=== PATIENT | female | born 1955 | race African-American/Black ===

== ENCOUNTER 2017-05-20 18:43 | Emergency (ER) | payer OTHER ==
[~2017-05-20 18:43] MED LIST: ALBU6.7H INH; IPRA17I INH; PRED10 PO; PRED20 PO; RANI150 PO
[2017-05-20 18:45] VITALS: BP 130/85; PULSE 87; RESP 16; TEMP 98; O2SAT 99
[2017-05-20 19:58] VITALS: BP 159/70; PULSE 87; RESP 18; O2SAT 98
[2017-05-20] MEDS ORDERED: MONT10TA2 PO (20:07)
[2017-05-20] MEDS ORDERED: IPRA17I INH (20:07)
[2017-05-20] MEDS ORDERED: CELE200C PO (20:07)
[2017-05-20] MEDS ORDERED: GLUC500T4 PO (20:07)
[2017-05-20] MEDS ORDERED: ALBUAER3 INH (20:07)
[2017-05-20] MEDS ORDERED: multivitamin PO (20:07)
[2017-05-20] MEDS ORDERED: calcium PO (20:07)
[2017-05-20] MEDS ORDERED: predniSONE 20 MG TAB PO ONE (20:15)
[2017-05-20] MEDS ORDERED: KETOROLAC TROMETHAMINE 60 MG/2 ML (IM) VIAL IM ONE (20:15)
[2017-05-20] MEDS ORDERED: MORPHINE SULFATE 8 MG/ML INJ IM ONE (20:15)
--- NOTE | 2017-05-20 21:13 | PD ---
HPI Chief Complaint: Pain: Acute or Chronic Time Seen by Provider: 20:04 Travel History International Travel<30 days: No Contact w/Intl Traveler<30days: No Traveled to known affect area: No History of Present Illness HPI Patient 61-year-old female with a history of degenerative disc disease presents emergency department for evaluation of low back pain radiating down her left leg. Patient states been going on for the past few days and gradually worsening. Denies any saddle anesthesia difficulty urinating fevers her back trauma. States not flared up on her in some time. When trying some Tylenol and ibuprofen at home. Patient states the symptoms are moderate to severe, gradually worsening, pins and needles in quality. PFSH Past Medical History Asthma: Yes Blood Disorders: No Cancer: No Cardiovascular Problems: No Diminished Hearing: No Endocrine: No Glaucoma: Yes (PREVENTIVE MEASURES, FAMILY HISTORY) Genitourinary: No Immune Disorder: No Musculoskeletal: Yes Reproductive: No Respiratory: Yes Tetanus Vaccination: Unknown Menopausal: Yes Tubal Ligation: Yes Past Surgical History Cholecystectomy: Yes Social History Alcohol Use: Yes (WINE DAILY) Tobacco Use: Yes (1 PPD) Substance Use: No Allergies-Medications (Allergen,Severity, Reaction): Coded Allergies: Sulfa (Sulfonamide Antibiotics) (Unverified Allergy, Severe, HIVES, ) Reported Meds & Prescriptions Reported Meds & Active Scripts Active Sweet Briar (Hydrocodone-Acetaminophen) 5-325 mg Tab 1 Tab PO Q6H PRN Prednisone 20 Mg Tab 60 Mg PO DAILY 5 Days Reported [calcium] 1 Tab PO DAILY [multivitamin] 1 Tab PO DAILY Glucosamine-Chondroitin 500-400 Mg Tab 1 Tab PO DAILY Atrovent HFA 12.9 GM Inh (Ipratropium Hassell) 17 Mcg/Actuation Aer 1 Puff INH BID Proair Hfa 8.5 GM Inh (Albuterol Sulfate) 90 Mcg/Act Aer 2 Puff INH Q4-6H PRN 108 mcg/actuation Singulair (Montelukast Sodium) 10 Mg Tab 10 Mg PO HS Celebrex (Celecoxib) 200 Mg Cap 200 Mg PO DAILY Review of Systems Except as stated in HPI: all other systems reviewed are Neg Physical Exam Narrative GENERAL: Well-developed well-nourished, mildly uncomfortable laying on her side in a stretcher. SKIN: Focused skin assessment warm/dry. HEAD: Atraumatic. Normocephalic. EYES: Pupils equal and round. No scleral icterus. No injection or drainage. ENT: No nasal bleeding or discharge. Mucous membranes pink and moist. NECK: Trachea midline. No JVD. CARDIOVASCULAR: Regular rate and rhythm. No murmur appreciated. RESPIRATORY: No accessory muscle use. Clear to auscultation. Breath sounds equal bilaterally. GASTROINTESTINAL: Abdomen soft, non-tender, nondistended. Hepatic and splenic margins not palpable. MUSCULOSKELETAL: No obvious deformities. No clubbing. No cyanosis. No edema. No midline CT or L-spine tenderness, 5 out of 5 strength in all 4 extremities, DTRs 2+ and bilaterally equal at the patella and Achilles. NEUROLOGICAL: Awake and alert. No obvious cranial nerve deficits. Motor grossly within normal limits. Normal speech. PSYCHIATRIC: Appropriate mood and affect; insight and judgment normal. Data Data Last Documented VS Vital Signs Date Time Temp Pulse Resp B/P (MAP) Pulse Ox O2 Delivery O2 Flow Rate FiO2 05/20/17 23:08 83 18 137/68 (91) 96 05/20/17 19:58 Room Air 05/20/17 18:45 98.0 Orders Orders Morphine Inj (Morphine Inj) (05/20/17 20:15) Ketorolac Inj (Toradol Inj) (05/20/17 20:15) Prednisone (Deltasone) (05/20/17 20:15) Ct Lumb Spine W/O Contrast (05/20/17 ) [facility] Medical Decision Making Medical Screen Exam Complete: Yes Emergency Medical Condition: Yes Differential Diagnosis Fracture, strain, sprain, cauda equina is excluded clinically, sciatica. Narrative Course Roomed in the emergency department, given pain medicine, CT scan shows degenerative disease without any acute findings. No indication further workup in the emergency department, ambulated from the emergency department in no distress. Discussed follow-up and return to ED criteria. Diagnosis Primary Impression: Sciatica Qualified Codes: M54.31 - Sciatica, right side Referrals: Cuong Torres MD [facility] Additional Instructions: Follow-up with your regular physician or the [facility]. Follow-up with Dr. Torres to consider injections. Med/Other Pt SpecificInfo: Prescription(s) given Scripts Hydrocodone-Acetaminophen (Sweet Briar) 5-325 mg Tab 1 TAB PO Q6H Y for PAIN, #12 TAB 0 Refills Prov: Jairo Carlin MD 05/20/17 Prednisone (Prednisone) 20 Mg Tab 60 MG PO DAILY for 5 Days, #15 TAB 0 Refills Prov: Jairo Carlin MD 05/20/17 Disposition: 01 DISCHARGE HOME Condition: Stable Jairo Carlin MD May 20, 2017 21:13
--- NOTE | 2017-05-20 22:15 | RADRPT ---
EXAM DATE/TIME: 05/20/2017 21:32 [facility] COMPARISON: No previous studies available for comparison. INDICATIONS : Lower back pain radiating down the left leg. RADIATION DOSE: 35.80 CTDIvol (mGy) MEDICAL HISTORY : None SURGICAL HISTORY : Cholecystectomy. Tubal ligation. ENCOUNTER: Initial ACUITY: 2 days PAIN SCALE: 7/10 LOCATION: Left lower back TECHNIQUE: Volumetric scanning of the lumbar spine was performed. Multiplanar reconstructions in the sagittal, coronal and oblique axial planes were performed. Using automated exposure control and adjustment of the mA and/or kV according to patient size, radiation dose was kept as low as reasonably achievable t o obtain optimal diagnostic quality images. DICOM format image data is available electronically for review and comparison. FINDINGS: VERTEBRAE: Normal vertebral body height. Moderate degenerative changes in the facet joints L3-S1 bilaterally. Vascular calcification nondistended abdominal aorta. ALIGNMENT: No evidence of subluxation. T12-L1: The thecal sac has a normal diameter. No evidence of disc bulge or protrusion. The neural foramina are patent bilaterally. L1-L2: The thecal sac has a normal diameter. No evidence of disc bulge or protrusion. The neural foramina are patent bilaterally. L2-L3: Broad-based bulging of the disc without significant indentation of the thecal sac. Disc bulge extend s into the neural foramen on the left. L3-L4: Broad-based bulging of the disc flattens ventral thecal sac and extends into the neural foramina bila terally, left greater than right. L4-L5: Broad-based bulging of the disc flattens the ventral margin of the thecal sac and extends into the ne ural foramina bilaterally. Mild facet joint hypertrophy. L5-S1: Mild bulging of the disc flattens the ventral margin of the thecal sac. No lateral extension. Mild bilateral facet joint hypertrophy. CONCLUSION: Multilevel disc bulging and multilevel facet joint hypertrophy as described above. Marco Jackson MD on May 20, 2017 at 22:11 Board Certified Radiologist. This report was verified electronically.
[2017-05-20] MEDS ORDERED: NORC5TAB PO (22:54)
[2017-05-20] MEDS ORDERED: PRED20 PO (22:54)
[2017-05-20 23:08] VITALS: BP 137/68
[2017-05-22] MEDS ORDERED: CALC600T25 PO (11:46)
[2017-05-22] MEDS ORDERED: MULTTAB67 PO (11:46)
== END 2017-05-20 23:12 | disposition home or self-care (01) ==
LOC: NEPD 18:43
DX: M54.41 Lumbago with sciatica, right side (principal)
CPT/HCPCS: 72131; 96372; 99285; J1885; J2270; J7512